=== PATIENT | male | born 1950 | race Caucasian/White ===

== ENCOUNTER 2018-12-27 06:51 | Day surgery (SDC) | payer MEDICARE ==
[2018-12-27] MEDS ORDERED: Propofol 200 MG/20 ML SDV ONE (07:26)
[2018-12-27] MEDS ORDERED: Midazolam 1 MG/ML 2 ML SDV ONE (07:26)
[2018-12-27] MEDS ORDERED: fentaNYL 100 MCG/2 ML SDV ONE (07:26)
[2018-12-27] MEDS ORDERED: Sodium Chloride 0.9% 1,000 ML IV SCH (07:30)
[2018-12-27 10:17] VITALS: BP 143/79; PULSE 60
--- NOTE | 2018-12-27 13:16 | OR ---
DATE OF PROCEDURE: 12/27/2018 SURGEON: Ernie Parrish MD PROCEDURE PERFORMED: Colonoscopy. FINDINGS: 1. Approximately 5 mm polyp, completely removed, descending colon, using snare. 2. Rectal polyp of approximately 5 mm, completely removed using cold biopsy forceps. COMPLICATIONS: None. DIETARY CLERK: None. ANESTHESIA: MAC. PREOPERATIVE DIAGNOSIS: Family history of colorectal cancer. POSTOPERATIVE DIAGNOSIS: Family history of colorectal cancer. RISKS: Risks, benefits, alternatives, and limitations including, but not limited to, infection, bleeding, and perforation were explained and patient wished to proceed. PROCEDURE IN DETAIL: The patient was placed in left lateral decubitus position. Digital rectal exam was performed without abnormality. The scope was introduced and advanced atraumatically to ileocecal valve. The scope was brought back to the ascending, transverse, descending colon, and retroflexed. No evidence of old or new blood. No masses. No other abnormalities. The polyps were described as above and completely removed. No other abnormalities. The patient tolerated the procedure well. Ernie Parrish MD /[id number]
== END 2018-12-27 10:15 | disposition home or self-care (01) ==
LOC: JP.SDS 06:51
PROVIDERS: ATTEND Surgery
DX: Z12.11 Encounter for screening for malignant neoplasm of colon (principal); K62.1 Rectal polyp; I25.10 Atherosclerotic heart disease of native coronary artery without angina pectoris; E78.5 Hyperlipidemia, unspecified; I13.10 Hypertensive heart and chronic kidney disease without heart failure, with stage 1 through stage 4 chronic kidney disease, or unspecified chronic kidney disease; E11.22 Type 2 diabetes mellitus with diabetic chronic kidney disease; N18.3 Chronic kidney disease, stage 3 (moderate); D69.6 Thrombocytopenia, unspecified; M10.9 Gout, unspecified; J44.9 Chronic obstructive pulmonary disease, unspecified; Z80.0 Family history of malignant neoplasm of digestive organs; Z88.0 Allergy status to penicillin
CPT/HCPCS: 88305; J2250; J2704; J3010; J7030

== ENCOUNTER 2021-10-17 21:00 | Emergency (ER) | payer MEDICARE ==
[2021-10-17] MEDS ORDERED: Sodium Chloride 0.9% 10 ML Syringe FLUSH PRN (21:07)
[2021-10-17] MEDS ORDERED: Sodium Chloride 0.9% 1,000 ML IV SCH (21:15)
[2021-10-17 21:51] LABS: ESTIMATED GFR 53 mL/min (>60)
[2021-10-17 22:16] VITALS: BP 110/57; PULSE 71
== END 2021-10-17 23:17 | disposition home or self-care (01) ==
LOC: JP.ED 21:00
DX: R55 Syncope and collapse (principal); E86.0 Dehydration; E87.1 Hypo-osmolality and hyponatremia; F10.920 Alcohol use, unspecified with intoxication, uncomplicated; E11.9 Type 2 diabetes mellitus without complications; Z88.0 Allergy status to penicillin; Z79.899 Other long term (current) drug therapy; Z79.82 Long term (current) use of aspirin; Z20.822 Contact with and (suspected) exposure to COVID-19
CPT/HCPCS: 36415; 80053; 80307; 84484; 85025; 93005; 99284; U0002; 93010; 99283

== ENCOUNTER 2022-12-28 08:14 | Day surgery (SDC) | payer MEDICARE ==
[2022-12-28] MEDS ORDERED: Lactated Ringers 1,000 ML IV SCH (09:00)
[2022-12-28] MEDS ORDERED: Propofol 200 MG/20 ML SDV ONE ×2 (09:26→10:19)
[2022-12-28] MEDS ORDERED: fentaNYL 50 MCG/ML SDV ONE (09:27)
[2022-12-28 13:23] VITALS: BP 148/73; PULSE 61
== END 2022-12-28 12:25 | disposition home or self-care (01) ==
LOC: JP.SDS 08:14
PROVIDERS: ATTEND Student in an Organized Health Care Education/Training Program
DX: Z12.11 Encounter for screening for malignant neoplasm of colon (principal); D12.3 Benign neoplasm of transverse colon; K62.1 Rectal polyp; I12.9 Hypertensive chronic kidney disease with stage 1 through stage 4 chronic kidney disease, or unspecified chronic kidney disease; E11.22 Type 2 diabetes mellitus with diabetic chronic kidney disease; N18.9 Chronic kidney disease, unspecified; J44.9 Chronic obstructive pulmonary disease, unspecified; Z80.0 Family history of malignant neoplasm of digestive organs; Z88.0 Allergy status to penicillin
CPT/HCPCS: 45380; 93005; J2704; J3010; J7120; 93010